=== PATIENT | female | born 1960 | race Caucasian/White ===

== ENCOUNTER 2023-08-29 13:43 | Emergency (ER) | payer OTHER, SELFPAY ==
[2023-08-29 13:51] VITALS: BP 142/89
--- NOTE | 2023-08-29 18:29 | ED.GENMED ---
History of Present Illness
General
Chief Complaint: Extremity Pain (non-traumatic)
Source: patient
Time Seen by Provider: 08/29/23 18:24
Travel History
Have you had any contact with someone who has COVID-19?: No
Do you have any symptoms of coronavirus? Fever > 100 degrees, chills, cough, shortness of breath, sore throat, loss of taste or smell, muscle aches, or headache?: No
History of Present Illness
History of Present Illness:
63-year-old female with past medical history of lung cancer status post left upper lobe lobectomy presenting to the emergency department for evaluation after she developed right posterior calf pain x 3 days, recent trip to [place] where patient took
an airplane, states pain is relatively constant, no exacerbating factors but symptoms did improve with Motrin. She denies any trauma, weakness or numbness, color changes, fevers or any other concerns. 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
checking her pulses and she states that the pulses were normal. Patient has no other concerns at this time.
Past History
Past History
ED Past Medical History: Cancer
ED Past Surgical History: and Gynecological
Social History
Tobacco: Non-smoker
Alcohol: Occasional
Drug: None
Personal:
Living: with family
Review of Systems
Review of Systems
All Other Systems: ROS reviewed and negative except as documented in HPI and ROS
Phy Exam
Physical Exam
Physical Exam:
GENERAL: Alert , in no apparent distress
EYE: conjunctiva clear
Head: Normocephalic atraumatic
NECK: Supple,
ENT: mmm.
LUNGS: no acute respiratory distress
NEUROLOGICAL: Alert and oriented
SKIN: Warm and dry, skin intact.
MUSCULOSKELETAL: Right lower extremity: No obvious deformity, erythema, edema, ecchymosis, abrasions or lacerations. Patient allows for full range of motion without difficulty. There is no palpable cords or focal areas of tenderness. Patient has
easily palpable pedal and tibial pulse. Cap refill less than 2 seconds and sensation is grossly intact to light touch.
PSYCH: Normal and appropriate interaction.
Scores
Heart Failure Risk
Heart Failure Risk Score: Not Applicable
Heart Score for Chest Pain Patients
STEMI patient?: Not applicable
Withdrawal Assessment of Alcohol
Withdrawal Assessment Completed?: Not applicable
Course
Orders/Labs/Results
Orders:
Orders
08/29/23 13:55
US Periph Venous LOWER Ext RT Urgent
Comment:
Reason For Exam: posterior leg pain, no known injury
Vital Signs
Initial and Last Documented VS:
Initial Vital Signs
Temp Pulse Resp BP Pulse Ox
97.9 F 86 16 142/89 98
08/29/23 13:51 08/29/23 13:51 08/29/23 13:51 08/29/23 13:51 08/29/23 13:51
Last Documented Vital Signs
Temp Pulse Resp BP Pulse Ox
97.9 F 86 16 142/89 98
08/29/23 13:51 08/29/23 13:51 08/29/23 13:51 08/29/23 13:51 08/29/23 13:51
MDM/Problems Addressed
Differential Diagnosis Includes:
DVT, SVT, Chairez's cyst, gastrocnemius strain
MDM/Problems Addressed:
63-year-old female present emergency department for evaluation of right posterior calf pain x 3 days. Symptoms somewhat improved with Motrin. No findings to suggest arterial complication given normal pulses bilateral. Patient without symptoms of
claudication. Ultrasound was ordered from triage and ultimately negative for DVT. Patient provided with a printout of ultrasound report. Advised compression, elevation and continued NSAIDs as needed for pain. Follow-up with primary care
provider. Aware of return precautions.
Chronic conditions affecting care: Cancer
*Radiology
Radiology exam reviewed: radiology read reviewed
*Pulse Oximetry
Patient hypoxic: no
*Critical Care Note
Total Time (30-74mins, 75-104mins- exclusive of procedures): Not Applicable
ED Attending Note
-
Portions of this chart may have been created with voice recognition software.� Occasional wrong word or��sound alike� substitutions may have occurred due to the inherent limitations of voice recognition software.
Discharge Plan
Departure
Patient Disposition: Home (Routine Discharge)
Date of Disposition: 08/29/23
Time of Disposition: 18:29
Patient with high blood pressure during this ER visit?: Yes
Discharge Problem:
Right calf pain
Instructions: Muscle Strain (DC)
Referrals:
UNKNOWN - PT DOES,NOT KNOW [Family Provider] -
Interventions
Interventions:
*General Assessment Last Done: 08/29/23 13:55
Discharge Date and Time
Print Language: ALBANIAN
== END 2023-08-29 18:30 | disposition home or self-care (01) ==
LOC: EMR 13:43
PROVIDERS: EMERGENCY PHYSICIAN Emergency Medicine
DX: M79.661 Pain in right lower leg (principal); R03.0 Elevated blood-pressure reading, without diagnosis of hypertension
CPT/HCPCS: 99284; 93971